=== PATIENT | male | born 1930 | race Caucasian/White ===

== ENCOUNTER 2016-10-04 06:41 | Observation (INO) | payer MEDICARE ==
[2016-10-01 13:28] VITALS: BMI 30.4
[2016-10-04] MEDS ORDERED: SODIUM CHLORIDE 0.9% 500 ML IV ONE ×2 (07:20→12:39)
[2016-10-04] MEDS ORDERED: fentaNYL (PF) 50 MCG/ML 2 ML AMP ONE ×2 (07:24→12:25)
[2016-10-04] MEDS ORDERED: MIDAZOLAM 2 MG/2 ML VIAL ONE ×2 (07:25→12:29)
[2016-10-04] MEDS ORDERED: BENZOCAINE SPRAY 100 APPLIC/CAN ONE (07:29)
[2016-10-04 07:34] LABS: Glucose,Whole Blood 136 mg/dL (75-99)
[2016-10-04 07:48] LABS: INR 1.8 (<1.1)
[2016-10-04] MEDS ORDERED: BENZOCAINE SPRAY 100 APPLIC/CAN MUCOUS MEM ONE (07:52)
[2016-10-04] MEDS ORDERED: fentaNYL (PF) 50 MCG/ML 2 ML AMP IV ONE ×2 (07:58→12:35)
[2016-10-04] MEDS ORDERED: MIDAZOLAM 2 MG/2 ML VIAL IV ONE (07:59)
--- NOTE | 2016-10-04 08:39 | P.PCN ---
Date of Procedure: 10/04/16 Preoperative Diagnosis: Sick sinus syndrome and severe aortic stenosis Postoperative Diagnosis: The same Procedure(s) Performed: JOSEE Description of Procedure: INDICATION : Assess aortic valve stenosis CONSENT: Verbal Consent was obtained from patient PROCEDURE: Patient was brought to the lab in a fasting state. He was given IV Versed and fentanyl for sedation. A lubricated Omni probe was introduced in the oropharynx and was advanced into the esophagus. Multiple views were obtained both from the stomach and esophagus. Patient tolerated the procedure well. Saline bubble injections were performed. Doppler study with color was also obtained FINDINGS: The aortic valve is sclerotic with reduced opening excursion with a valve area of 0.8 to 0.9. The peak gradient was about 50 with a mean of about 30. There is a mild aortic valve regurgitation. There is a moderate to severe mitral regurgitation. Left atrial appendage is free of any clot. Interatrial limits septum is intact. There is no shunt noted. Injection of contrast saline bubbles did not reveal any crossover bubbles across the interatrial septum. Left ankle function is preserved. Left atrium is enlarged IMPRESSION: #1. Severe aortic stenosis and mild aortic regurgitation. #2. No PFO #3 N left atrial enlargement o clot in left atrial appendage. #4. Moderate to severe mitral regurgitation #5. Preserved LV function. #6. Left atrial enlargement. PLAN: May consider for possible aortic valve replacement with TAVR.
[2016-10-04] MEDS ORDERED: ceFAZolin 1,000 MG in SODIUM CHLORIDE 0.9% IRRIGATIO 250 ML IRRIGATION ONE (09:23)
[2016-10-04] MEDS ORDERED: ceFAZolin 2 GM in SODIUM CHLORIDE 0.9% 100 ML IVPB STA (09:23)
[2016-10-04] MEDS ORDERED: IODIXANOL 320 MG/ML 100 ML IV ONE (12:22)
[2016-10-04] MEDS ORDERED: MIDAZOLAM 2 MG/2 ML VIAL IVP ONE (12:36)
[2016-10-04] MEDS ORDERED: LIDOCAINE 2% INJ 20 MG/ML SQ ONE (12:37)
[2016-10-04] MEDS ORDERED: ACETAMINOPHEN TAB 325 MG TAB PO PRN (13:11)
--- NOTE | 2016-10-04 13:21 | P.PCN ---
Date of Procedure: 10/04/16 Preoperative Diagnosis: Junctional bradycardia, atrial fibrillation dizziness and near-syncope. Nonsustained V. tach Postoperative Diagnosis: The same Procedure(s) Performed: Axillary venography, permanent pacemaker implantation Description of Procedure: HISTORY: This is a 86-year-old gentleman with history of aortic stenosis and chronic atrial fibrillation who has been having episodes of dizziness and near syncopal episodes. A 24-hour DCG showed significant bradycardia and junctional escape rhythms and also episodes of nonsustained V. tach some. Patient was advised to have permanent pacemaker implantation. Patient also has critical aortic stenosis and maybe constricted for aortic valve replacement . CONSENT:I have discussed the risks, benefits and alternative therapies for the above-mentioned procedure and for both sedation/analgesia as well as necessary blood product administration, if indicated, as they pertain to this patient. The patient has indicated understanding and acceptance of the risks and procedures discussed. PROCEDURE: Patient was brought to the lab in a fasting state. Patient was prepped and draped in the usual fashion. Patient was given IV sedation with fentanyl and Versed. The skin below the left clavicle was infiltrated with lidocaine. An incision was made parallel to deltopectoral groove was deepened until the pectoral fascia was exposed. A pocket was created by blunt dissection and cautery. Axillary venography was performed to delineate the course of the axillary vein. 1 stick were performed into extrathoracic portion of the axillary vein and 1sheath were advanced over the guidewires and left in subclavian vein. LEADS: VENTRICULAR: This is manufactured by [employer]. Model number is [id number]. Serial number is [id number]. The ventricular lead is maneuvered l with help of a straight and curved stylets into the left ventricle apical region. Satisfactory position was obtained and threshold measurements were made. The atrial lead was then maneuvered into the right atrial appendage. And thresholds were obtained. THRESHOLDS: VENTRICLE : The minimum patient threshold was 0.5 V at pulse width of 0.5 ms with impedance of 893 ohms. R-wave: 8.5 mV The leads and pulse generator remained in the pocket after it was washed with antibiotics. Pocket was closed in the usual fashion. The fascia was closed with 2-0 Prolene ,the subcutaneous tissue was closed with 3-0 Prolene and the skin was closed with 4-0 Prolene. PROGRAMMING: MODE: VVIR RATE: 60-110 OUTPUT: ventricle: 3.5 V at pulse width of 0.5 ms. FINAL IMPRESSION: #1. Axillary venography #2. Successful implantation of single-chamber permanent pacemaker. COMPLICATIONS: Nil PLAN: Patient will monitored on the telemetry unit. If stable patient be discharged home tomorrow. Chest x-ray in the morning. Continue the prophylactic antibiotics.
[2016-10-04] MEDS ORDERED: NITROGLYCERIN SL TABS 0.4 MG TAB SUBLINGUAL PRN (13:34)
[2016-10-04] MEDS: SODIUM CHLORIDE 0.9% 1,000 ML IV SCH ×2 (15:04→15:05)
[2016-10-04 17:02] LABS: Glucose,Whole Blood 176 mg/dL (75-99)
[2016-10-04] MEDS: ceFAZolin 2 GM in SODIUM CHLORIDE 0.9% 100 ML IVPB SCH ×2 (17:27→23:12)
[2016-10-04] MEDS ORDERED: WARFARIN 5 MG TAB PO SCH (18:00)
[2016-10-04] MEDS ORDERED: ONDANSETRON 4 MG/2 ML VIAL IVP PRN (19:35)
[2016-10-04] MEDS: HYDROcodone/APAP 5-325MG 1 EACH TAB PO PRN (20:11)
[2016-10-04] MEDS: ATORVASTATIN 20 MG TAB PO SCH (20:12)
[2016-10-04] MEDS: GABAPENTIN 300 MG CAP PO SCH (20:12)
[2016-10-04] MEDS: GLIMEPIRIDE 2 MG TAB PO SCH (20:12)
[2016-10-04] MEDS: FAMOTIDINE 20 MG TAB PO SCH (20:12)
[2016-10-04 20:30] LABS: Glucose,Whole Blood 207 mg/dL (75-99)
[2016-10-05] MEDS: HYDROcodone/APAP 5-325MG 1 EACH TAB PO PRN (03:47)
[2016-10-05] MEDS: ceFAZolin 2 GM in SODIUM CHLORIDE 0.9% 100 ML IVPB SCH ×2 (05:42→12:11)
--- NOTE | 2016-10-05 07:45 | XR ---
EXAMINATION TYPE: XR chest 2V DATE OF EXAM: 10/05/2016 7:23 AM COMPARISON: NONE TECHNIQUE: PA and lateral views submitted. HISTORY: Lead placement check FINDINGS: Single lead pacemaker seen lead overlying the right ventricle. No pneumothorax. Coarsened interstitiu m with bilateral effusion and pleural thickening noted. Masslike area of consolidation along the late ral margin of the left pleural space for upper lobe. Arthropathy of the shoulders noted. IMPRESSION: 1. No postprocedural complication 2. Diffuse interstitial changes may been the basis of pulmonary fibrosis. Superimposed pneumonitis or venous congestion in the differential diagnosis with small bilateral effusions. 2. Masslike area of consolidation lateral margin right upper lobe. Recommend CT chest to exclude neop lasm.
[2016-10-05 07:50] LABS: Glucose,Whole Blood 142 mg/dL (75-99)
[2016-10-05] MEDS: MULTIVITAMINS, THERA 1 EACH TAB PO SCH (08:07)
[2016-10-05] MEDS: GABAPENTIN 300 MG CAP PO SCH ×2 (08:07→19:37)
[2016-10-05] MEDS: LOSARTAN 50 MG TAB PO SCH (08:07)
[2016-10-05] MEDS: LORATADINE 10 MG TAB PO SCH (08:07)
[2016-10-05] MEDS: ISOSORBIDE MONONITRATE ER 60 MG TAB.ER.24H PO SCH (08:08)
[2016-10-05] MEDS: GLIMEPIRIDE 2 MG TAB PO SCH ×2 (08:08→19:38)
[2016-10-05] MEDS: amLODIPine 5 MG TAB PO SCH (08:08)
[2016-10-05] MEDS: FENOFIBRATE 160 MG TAB PO SCH (08:08)
[2016-10-05] MEDS: FAMOTIDINE 20 MG TAB PO SCH ×2 (08:08→19:37)
--- NOTE | 2016-10-05 08:58 | P.PN ---
Subjective Principal diagnosis: junctional bradycardia, atrial fibrillation aortic stenosis and episodes of dizziness and near syncope and patient also had a permanent pacemaker implantation Patient was brought in yesterday for permanent pacemaker implantation and also JOSEE examination. JOSEE examination showed severe aortic stenosis. Patient also had significant bradycardia and had a single-chamber pacemaker implantation. Patient is clinically stable but complaints of shortness of breath both with exertion and to some extent at rest. Patient does require nasal oxygen. His lungs appeared clinically clear. 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 There is also questionable mass in the right upper lobe. A computed tomography scan is recommended. No complications from the pacemaker insertion. No evidence of pneumothorax. Patient also had an episode of nonsustained ventricular tachycardia. I'm going to resume him on a beta mahendra and also give him IV Lasix. Will admit the patient for further evaluation. I will obtain blood work including CMP and also BNP levels. He patient is stable patient be discharged home in 24 hours. Patient will have appointment with Dr. Desai as an outpatient and a computed tomography scan can be obtained as an outpatient. Objective - Vital Signs Vital signs: Vital Signs Temp 98.2 F 10/05/16 08:00 Pulse 70 10/05/16 08:00 Resp 18 10/05/16 08:00 BP 165/77 10/05/16 08:00 Pulse Ox 93 L 10/05/16 08:00 Intake & Output 10/04/16 10/05/16 10/05/16 18:59 06:59 18:59 Intake Total 870 Output Total 120 Balance 870 -120 Intake: IV 430 Oral 440 Output: Urine 120 Other: Voiding Method Toilet Toilet # Voids 1 - Labs Labs: Abnormal Lab Results - Last 24 Hours (Table) 10/04/16 10/04/16 10/05/16 Range/Units 17:00 20:21 07:45 POC Glucose (mg/dL) 176 H 207 H 142 H (75-99) mg/dL Assessment and Plan (1) History of permanent cardiac pacemaker placement Status: Acute (2) Congestive heart failure Status: Acute (3) Atrial fibrillation Status: Acute (4) Aortic stenosis Status: Acute (5) Coronary artery disease Status: Acute Plan: Patient will be continued on current medical therapy and antibiotics. I'll start him on by mouth beta blockers and also IV diuretics. I will repeat chest x-ray in the morning. Possible discharge in a.m.
[2016-10-05] MEDS ORDERED: FUROSEMIDE 40 MG TAB PO SCH (09:00)
[2016-10-05] MEDS ORDERED: NON-FORMULARY DRUG (Omega-3 Fatty Acids/Fish Oil [Fish Oil 1,000 Mg Softgel] 1 EACH) PO SCH (09:00)
[2016-10-05 09:12] LABS: ALT 22 U/L (21-72); AST 33 U/L (17-59); Alkaline Phosphatase 52 U/L (38-126); Anion Gap 12 mmol/L; Blood Urea Nitrogen 19 mg/dL (9-20); Calcium 9.3 mg/dL (8.4-10.2); Carbon Dioxide 19 mmol/L (22-30); Chloride 112 mmol/L (98-107); Glucose 132 mg/dL (74-99); Non-African American GFR(MDRD) >60 (>60 ml/min/1.73 sqM); Potassium 4.7 mmol/L (3.5-5.1); Sodium 143 mmol/L (137-145); Total Protein 6.7 g/dL (6.3-8.2)
[2016-10-05 11:07] LABS: Hemoglobin A1C 7.6 % (4.2-6.1)
[2016-10-05] MEDS: METOPROLOL TARTRATE 25 MG TAB PO SCH ×2 (11:10→20:30)
[2016-10-05] MEDS ORDERED: MAGNESIUM SULFATE-D5W PMX 1 GM in DEXTROSE/WATER 1 100ML.BAG IVPB ONE (11:11)
[2016-10-05] MEDS ORDERED: VIT A,C & E-LUTEIN-MINERALS 1 EACH TAB PO SCH (12:00)
[2016-10-05 12:21] LABS: Glucose,Whole Blood 211 mg/dL (75-99)
[2016-10-05] MEDS: SODIUM CHLORIDE 0.9% 1,000 ML IV SCH ×2 (13:48)
[2016-10-05 17:06] LABS: Glucose,Whole Blood 150 mg/dL (75-99)
[2016-10-05] MEDS ORDERED: WARFARIN 2.5 MG TAB PO SCH (18:00)
[2016-10-05 19:24] VITALS: RESP 18
[2016-10-05] MEDS: ATORVASTATIN 20 MG TAB PO SCH (19:37)
[2016-10-05] MEDS: FUROSEMIDE 10 MG/ML 2 ML VIAL IV SCH (19:38)
[2016-10-05 20:14] LABS: Glucose,Whole Blood 164 mg/dL (75-99)
[2016-10-06 06:50] LABS: Glucose,Whole Blood 126 mg/dL (75-99)
[2016-10-06 07:14] LABS: INR 2.5 (<1.1)
[2016-10-06 07:51] VITALS: BP 123/76; PULSE 60; TEMP 97.5
[2016-10-06] MEDS: SODIUM CHLORIDE 0.9% 1,000 ML IV SCH ×2 (08:54)
[2016-10-06] MEDS: LOSARTAN 50 MG TAB PO SCH (08:57)
[2016-10-06] MEDS: ISOSORBIDE MONONITRATE ER 60 MG TAB.ER.24H PO SCH (08:58)
[2016-10-06] MEDS: FENOFIBRATE 160 MG TAB PO SCH (08:58)
[2016-10-06] MEDS: LORATADINE 10 MG TAB PO SCH (08:58)
[2016-10-06] MEDS: MULTIVITAMINS, THERA 1 EACH TAB PO SCH (08:58)
[2016-10-06] MEDS: METOPROLOL TARTRATE 25 MG TAB PO SCH (08:58)
[2016-10-06] MEDS: FAMOTIDINE 20 MG TAB PO SCH (08:58)
[2016-10-06] MEDS: GABAPENTIN 300 MG CAP PO SCH (08:58)
[2016-10-06] MEDS: GLIMEPIRIDE 2 MG TAB PO SCH (08:58)
[2016-10-06] MEDS: FUROSEMIDE 10 MG/ML 2 ML VIAL IV SCH (08:58)
[2016-10-06] MEDS: amLODIPine 5 MG TAB PO SCH (08:58)
--- NOTE | 2016-10-06 10:43 | P.DS ---
Providers Date of admission: 10/04/16 21:38 Attending physician: Cruzito Das Primary care physician: Bladimir Morataya [facility] Course: this is an 86-year-old gentleman who follows with Dr. Desai in the office. His history of junctional bradycardia, atrial fibrillation, aortic stenosis and episodes of dizziness and near syncope. Patient was brought in for permanent pacemaker implantation and JOSEE examination. JOSEE showed severe aortic stenosis. Patient also had significant bradycardia and had a single-chamber pacemaker implanted without complications. Patient was seen and examined yesterday by Dr. Das and had complaints of significant shortness of breath on exertion and at rest. Chest x-ray did show evidence of possible CHF as well as questionable mass in the right upper lobe and a computed tomography scan is recommended. he also had an episode of nonsustained VT. His beta mahendra was resumed yesterday and he was started on Lasix IV push 20 mg every 12 hours. upon examination this morning, patient is doing well. He denies further complaints of shortness of breath has been up ambulating without difficulty. Denies any complaints of chest discomfort, orthopnea, PND, dizziness or lightheadedness. His lungs are clear, heart sounds are regular S1-S2 with no audible murmur, LIC incision with dressing dry and intact site is soft without hematoma. He has no edema, abdomen is soft and nontender. Patient was instructed on left arm restrictions. He will follow-up with Dr. Desai and in the device clinic in one week. he will also need a computed tomography scan as an outpatient. Plan - Discharge Summary New Discharge Prescriptions: Furosemide [Lasix] 40 mg PO BID@0900,1600 #180 tab Metoprolol Tartrate [Lopressor] 25 mg PO BID #180 tab Discharge Medication List Acetaminophen [Tylenol Arthritis] 650 mg PO Q12H PRN 10/01/16 [History] Aspirin [Adult Low Dose Aspirin EC] 81 mg PO DAILY 10/01/16 [History] Atorvastatin [Lipitor] 20 mg PO HS 10/01/16 [History] Fenofibrate Nanocrystallized [Fenofibrate] 145 mg PO DAILY 10/01/16 [History] Gabapentin [Neurontin] 300 mg PO BID 10/01/16 [History] Glimepiride [Amaryl] 2 mg PO [id number] 10/01/16 [History] Glimepiride [Amaryl] 4 mg PO HS 10/01/16 [History] Isosorbide Mononitrate ER [Imdur] 60 mg PO DAILY 10/01/16 [History] Loratadine [Claritin] 10 mg PO DAILY 10/01/16 [History] Losartan Potassium [Cozaar] 100 mg PO DAILY 10/01/16 [History] Multivit-Min/FA/Lycopen/Lutein [Centrum Silver Men Tablet] 1 tab PO DAILY [History] Nitroglycerin Sl Tabs [Nitrostat] 0.4 mg SUBLINGUAL Q5M PRN 10/01/16 [History] [place]-3 Fatty Acids/Fish Oil [Fish Oil 1,000 mg Softgel] 1 cap PO DAILY [History] Ranitidine HCl 150 mg PO BID 10/01/16 [History] Vit C/E/Zn/Coppr/Lutein/Zeaxan [Preservision Areds 2 Softgel] 1 cap PO DAILY 01/12 [History] Warfarin [Coumadin] 2.5 mg PO MOFR 10/01/16 [History] Warfarin [Coumadin] 5 mg PO SUTUWETHSA 10/01/16 [History] amLODIPine [Norvasc] 5 mg PO DAILY 10/01/16 [History] Furosemide [Lasix] 40 mg PO BID@0900,1600 #180 tab 10/06/16 [Rx] Metoprolol Tartrate [Lopressor] 25 mg PO BID #180 tab 10/06/16 [Rx] Follow up Appointment(s)/Referral(s): Collin Fournier MD [STAFF PHYSICIAN] - 1 Week Patient Instructions/Handouts: Heart Failure (ED)
[2016-10-06] MEDS ORDERED: FUROSEMIDE 40 MG TAB PO SCH (16:00)
== END 2016-10-06 12:35 | disposition home or self-care (01) ==
LOC: CATHEP 06:41 → 3OBS 13:18 → CATHEP 21:38
PROVIDERS: ADMIT Internal Medicine Cardiovascular Disease; ATTEND Internal Medicine Cardiovascular Disease
DX: I49.5 Sick sinus syndrome (principal); I35.0 Nonrheumatic aortic (valve) stenosis; I35.1 Nonrheumatic aortic (valve) insufficiency; I34.0 Nonrheumatic mitral (valve) insufficiency; I48.2 Chronic atrial fibrillation; I11.0 Hypertensive heart disease with heart failure; I50.9 Heart failure, unspecified; I25.10 Atherosclerotic heart disease of native coronary artery without angina pectoris; I48.92 Unspecified atrial flutter; E78.00 Pure hypercholesterolemia, unspecified; I47.2 Ventricular tachycardia; E11.9 Type 2 diabetes mellitus without complications; E78.5 Hyperlipidemia, unspecified; Z79.82 Long term (current) use of aspirin; Z79.899 Other long term (current) drug therapy; Z79.01 Long term (current) use of anticoagulants; Z79.84 Long term (current) use of oral hypoglycemic drugs
CPT/HCPCS: 93312; 93320; 93325; 33207; 83880; 80053; 83036; 85610 ×2; 71020; 99152; 99153; G0378 ×3; C1786; C1898; J2001; J2250; J1940 ×2; Q9967; J0690 ×2; J2405; J3010; J3475; 96365; 96375; 96376